=== PATIENT | female | born 1975 | race Caucasian/White ===

== ENCOUNTER → 2016-11-14 | Outpatient (CLI) | payer OTHER ==
[~2016-11-14] MED LIST: NONE PER PT
== END | disposition home or self-care (01) ==
LOC: ROC 10:09
PROVIDERS: ATTEND Radiology Radiation Oncology
DX: D48.1 Neoplasm of uncertain behavior of connective and other soft tissue (principal); Z98.890 Other specified postprocedural states
CPT/HCPCS: 99213; G0463

== ENCOUNTER → 2017-08-25 | Outpatient (CLI) | payer OTHER ==
[~2017-08-25] MED LIST changes: +GADOBUTROL 7.5 MMOL/7.5 ML PFS ONE
== END | disposition home or self-care (01) ==
LOC: CFH 10:12
PROVIDERS: ATTEND Radiology Radiation Oncology
DX: D48.61 Neoplasm of uncertain behavior of right breast (principal); Z92.3 Personal history of irradiation
CPT/HCPCS: 71552; A9585

== ENCOUNTER → 2017-09-12 | Outpatient (CLI) | payer OTHER ==
[~2017-09-12] MED LIST changes: -GADOBUTROL 7.5 MMOL/7.5 ML PFS ONE
== END ==
LOC: ROC 07:07
PROVIDERS: ATTEND Radiology Radiation Oncology
DX: Z08 Encounter for follow-up examination after completed treatment for malignant neoplasm (principal); D48.60 Neoplasm of uncertain behavior of unspecified breast
CPT/HCPCS: 99213; G0463

== ENCOUNTER → 2018-09-10 | Outpatient (CLI) | payer OTHER ==
[~2018-09-10] MED LIST changes: +GADOBUTROL 7.5 MMOL/7.5 ML PFS ONE
== END | disposition home or self-care (01) ==
LOC: CFH 10:00
PROVIDERS: ATTEND Radiology Radiation Oncology
DX: D48.60 Neoplasm of uncertain behavior of unspecified breast (principal); Z98.890 Other specified postprocedural states
CPT/HCPCS: 71552; A9585

== ENCOUNTER → 2018-09-16 | Outpatient (CLI) | payer OTHER ==
[~2018-09-16] MED LIST changes: -GADOBUTROL 7.5 MMOL/7.5 ML PFS ONE
== END | disposition home or self-care (01) ==
LOC: ROC 08:29
PROVIDERS: ATTEND Radiology Radiation Oncology
DX: D48.60 Neoplasm of uncertain behavior of unspecified breast (principal)
CPT/HCPCS: 99213; G0463

== ENCOUNTER → 2019-03-01 | Outpatient (CLI) | payer OTHER | END | disposition home or self-care (01) | LOC: CFH 09:38 | PROVIDERS: ATTEND Radiology Radiation Oncology | DX: Z12.31 Encounter for screening mammogram for malignant neoplasm of breast (principal) | CPT/HCPCS: 76641; 77063; 77067 ==

== ENCOUNTER → 2019-10-21 | Outpatient (CLI) | payer OTHER | END | disposition home or self-care (01) | LOC: ROC 07:43 | PROVIDERS: ATTEND Radiology Radiation Oncology | DX: D48.61 Neoplasm of uncertain behavior of right breast (principal) | CPT/HCPCS: 99213; G0463 ==

== ENCOUNTER → 2020-03-09 | Outpatient (CLI) | payer OTHER | END | disposition home or self-care (01) | LOC: CFH 15:02 | PROVIDERS: ATTEND Radiology Radiation Oncology | DX: Z12.31 Encounter for screening mammogram for malignant neoplasm of breast (principal); D48.60 Neoplasm of uncertain behavior of unspecified breast | CPT/HCPCS: 76641; 77063; 77067 ==

== ENCOUNTER → 2020-10-03 | Outpatient (CLI) | payer OTHER | END | disposition home or self-care (01) | LOC: ROC 07:21 | PROVIDERS: ATTEND Radiology Radiation Oncology | DX: Z08 Encounter for follow-up examination after completed treatment for malignant neoplasm (principal); D48.60 Neoplasm of uncertain behavior of unspecified breast | CPT/HCPCS: 99212; G0463 ==